=== PATIENT | male | born 1955 | race Caucasian/White ===

== ENCOUNTER → 2017-05-07 | Outpatient (REF) | payer MEDICARE, BC, MEDICAID ==
[~2017-05-07] MED LIST: ACET50TAOT PO; ASPI1TAB PO; ASPI81TA24 PO; ATOR40TA75 PO; AUGM875T28 PO; BACL10TA2 PO; ENAL2.5T PO; ENAL5TAB PO; FISH100049 PO; KEPP10002 PO; METO25TAB PO; NITR4TASL SL; PLAV1TAB2 PO; PRIL20CA9 PO; TOPR100T PO; VITMTA PO
[2017-05-07 22:01] LABS: BASO # 0.1 K/mm3 (0.0-0.2); BASO % 0.6 % (0.0-1.0); EOS # 0.5 K/mm3 (0.0-0.50); EOS % 3.8 % (0.0-3.0); LARGE UNSTAINED CELL # 0.1 K/mm3 (0.0-0.4); LYMPH # 1.6 K/mm3 (1.5-4.5); LYMPH % 13.7 % (24.0-44.0); MEAN CORPUSCULAR HEMOGLOBIN 32.8 pg (27.0-33.0); MEAN CORPUSCULAR HGB CONC 34.5 g/dl (32.0-36.5); MEAN CORPUSCULAR VOLUME 95.1 fl (80.0-96.0); MONO # 0.5 K/mm3 (0.0-0.8); MONO % 4.4 % (0.0-5.0); NEUTROPHILS # 9.2 K/mm3 (1.8-7.7); NEUTROPHILS % 76.5 % (36.0-66.0); PLATELET COUNT, AUTOMATED 175 k/mm3 (150-450); RED CELL DISTRIBUTION WIDTH 11.9 % (11.5-14.5)
== END ==
LOC: M LAB REF 20:59
PROVIDERS: ATTEND Physician Assistant Medical
DX: R31.9 Hematuria, unspecified (principal)

== ENCOUNTER → 2017-08-22 | Outpatient (CLI) | payer BC, MEDICARE ==
[~2017-08-22] MED LIST changes: +CONRAY-43 43% 50ML VIAL (Q9960) As Ordered ONE; +PROHANCE 279.3MG/ML 5ML VIAL (A9576) As Ordered ONE
--- NOTE | 2017-08-22 10:20 | REP ---
CT arthrogram left shoulder with intra-articular iodinated contrast injection: History: Muscle strain/tendon injury rotator cuff left shoulder. Comparison MRI study left shoulder is from May 22, 2014. Technique: The injection procedure is performed and dictated separately. Helical scanning is acquired. Axial 3 mm slices are reformatted. Coronal and sagittal multiplanar reformation images are generated and reviewed. CT arthrographic findings: There is subcortical cyst formation in the superolateral aspect of the humeral head. In addition, there is area of what appears to be older subacute impaction of the superolateral cortex of the humeral head. This is in the expected location of a Hill-Sachs impaction fracture deformity. It is not visible on the 2014 MRI study. Glenohumeral and acromioclavicular joints are normally aligned. No loose body is seen. No other fracture or bony destructive or erosive lesion. Superior labral cartilage is unremarkable on coronal images. No anterior or posterior cartilaginous labral tear is seen. No loose body is seen. The subscapularis tendon appears to be intact. The biceps tendon is seen within the bony bicipital groove. On oblique coronal reformation images, there is slight attenuation of the supraspinatus tendon. No retracted tear is seen. I suspect partial thickness tears along the undersurface of the supraspinatus tendon. Impression: Partial thickness distal supraspinatus tendon tear suspected synovial surface. No complete tear is appreciated. There is evidence of a subtle Hill-Sachs impaction lesion posterior, superior and lateral on the humeral head. The labral cartilage disruption is appreciated. Signed by Kennedy Gonzalez MD 08/22/2017 04:06 P
--- NOTE | 2017-08-22 16:30 | REP ---
Procedure: Left shoulder arthrogram The procedure was performed under the direct supervision of Dr. Gonzalez. History: Left shoulder pain The benefits and risks including but not limited to pain, infection, bleeding and anaphylaxis were explained to the patient and informed consent was obtained. Technique: The left glenohumeral joint space was localized using fluoroscopic guidance. The skin was prepped and draped in a sterile fashion. 1% lidocaine was used as a local anesthetic. Using fluoroscopic guidance a 22 gauge spinal needle was inserted and advanced into the joint. 11 ml of Conray 43 was injected into the joint. The needle was removed and the patient was taken to CAT scan for postprocedural imaging. The the patient tolerated the procedure well and there were no immediate complications. 4 seconds of fluoro time was utilized for this procedure. Reviewed by ANDREW London 08/22/2017 03:57 PSigned by Kennedy Gonzalez MD 08/22/2017 04:21 P
== END ==
LOC: M RADPRO 08:25
PROVIDERS: ATTEND Family Medicine
DX: S46.012D Strain of muscle(s) and tendon(s) of the rotator cuff of left shoulder, subsequent encounter (principal); M75.92 Shoulder lesion, unspecified, left shoulder; M24.112 Other articular cartilage disorders, left shoulder; X58.XXXD Exposure to other specified factors, subsequent encounter; Y93.9 Activity, unspecified; Y92.9 Unspecified place or not applicable; Y99.8 Other external cause status; Z88.5 Allergy status to narcotic agent; Z88.3 Allergy status to other anti-infective agents; Z88.8 Allergy status to other drugs, medicaments and biological substances; Z88.2 Allergy status to sulfonamides; Z79.82 Long term (current) use of aspirin; Z79.899 Other long term (current) drug therapy
CPT/HCPCS: 23350; 73201; 77002; A9576; Q9960

== ENCOUNTER 2017-10-22 08:36 | Day surgery (SDC) | payer BC ==
[2017-10-22] MEDS ORDERED: NEOSTIGMINE 10 MG/10 ML VIAL (J2710) (08:37)
[2017-10-22] MEDS ORDERED: dexameTHASONE 10 MG/1 ML VIAL PRES.FREE (J1100) (08:37)
[2017-10-22] MEDS ORDERED: ROPIvacaine 0.5% 30 ML INJECTION (J2795 PER 1MG) (08:37)
[2017-10-22] MEDS: LR 1,000 ML IV (09:26)
[2017-10-22] MEDS ORDERED: fentaNYL 100 MCG/2 ML INJECTION (J3010) As Ordered ×2 (10:25→11:08)
[2017-10-22] MEDS ORDERED: MIDAZOLAM INJ 2 MG/2 ML VIAL (J2250) As Ordered ×2 (10:25→11:08)
[2017-10-22] MEDS: LIDOCAINE 1% MDV 20ML VIAL As Ordered (11:11)
[2017-10-22] MEDS ORDERED: MIDAZOLAM INJ 2 MG/2 ML VIAL (J2250) IV (11:30)
[2017-10-22] MEDS ORDERED: fentaNYL 100 MCG/2 ML INJECTION (J3010) IV ×2 (11:30→14:30)
[2017-10-22] MEDS: EPINEPHrine 1MG/ML INJ 30ML MD-VIAL As Ordered (11:40)
[2017-10-22] MEDS ORDERED: ONDANSETRON 4MG/2ML VIAL (J2405) As Ordered (13:06)
[2017-10-22] MEDS ORDERED: LIDOCAINE 2% INJ 100 MG/5 ML SDV (FOR ANES.) As Ordered (13:06)
[2017-10-22] MEDS ORDERED: PROPOFOL 200 MG/20 ML VIAL As Ordered (13:06)
[2017-10-22] MEDS ORDERED: NEOSTIGMINE 10 MG/10 ML VIAL (J2710) As Ordered (13:06)
[2017-10-22] MEDS ORDERED: ROCURONIUM BROMIDE 50 MG/5 ML VIAL As Ordered (13:06)
[2017-10-22] MEDS ORDERED: ePHEDrine INJ 50 MG/ML VIAL As Ordered ×2 (13:07→13:39)
[2017-10-22] MEDS ORDERED: dexameTHASONE 4 MG/ML 1ML VIAL (J1100) As Ordered (13:07)
[2017-10-22] MEDS ORDERED: ONDANSETRON 4MG/2ML VIAL (J2405) IV (14:30)
[2017-10-22] MEDS ORDERED: LR 1,000 ML IV ×2 (14:30→15:00)
== END 2017-10-22 15:23 | disposition home or self-care (01) ==
LOC: M SDC 08:36
DX: M75.122 Complete rotator cuff tear or rupture of left shoulder, not specified as traumatic (principal); M75.22 Bicipital tendinitis, left shoulder; S43.492A Other sprain of left shoulder joint, initial encounter; X58.XXXA Exposure to other specified factors, initial encounter; Y93.89 Activity, other specified; Y92.89 Other specified places as the place of occurrence of the external cause; Y99.8 Other external cause status; I11.9 Hypertensive heart disease without heart failure; I25.10 Atherosclerotic heart disease of native coronary artery without angina pectoris; K21.9 Gastro-esophageal reflux disease without esophagitis; E78.5 Hyperlipidemia, unspecified; I25.2 Old myocardial infarction; J44.9 Chronic obstructive pulmonary disease, unspecified; K62.1 Rectal polyp; I07.1 Rheumatic tricuspid insufficiency; I34.0 Nonrheumatic mitral (valve) insufficiency; M12.9 Arthropathy, unspecified; M25.512 Pain in left shoulder; G35 Multiple sclerosis; G47.30 Sleep apnea, unspecified; J30.9 Allergic rhinitis, unspecified; F17.200 Nicotine dependence, unspecified, uncomplicated; Z88.5 Allergy status to narcotic agent; Z88.8 Allergy status to other drugs, medicaments and biological substances; Z91.048 Other nonmedicinal substance allergy status; Z79.899 Other long term (current) drug therapy; Z79.82 Long term (current) use of aspirin; Z79.52 Long term (current) use of systemic steroids; Z79.01 Long term (current) use of anticoagulants; Z95.1 Presence of aortocoronary bypass graft; Z95.5 Presence of coronary angioplasty implant and graft; Z86.73 Personal history of transient ischemic attack (TIA), and cerebral infarction without residual deficits; Z98.84 Bariatric surgery status; Z96.1 Presence of intraocular lens
CPT/HCPCS: 29827

== ENCOUNTER 2018-03-13 06:35 | Emergency (ER) | payer BC ==
[2018-03-13 07:28] LABS: BASO # 0.1 10^3/uL (0.0-0.2); BASO % 0.5 % (0.0-1.0); EOS # 0.2 10^3/uL (0.0-0.50); EOS % 2.3 % (0.0-3.0); HEMATOCRIT 45.9 % (42.0-52.0); HEMOGLOBIN 15.7 g/dl (13.5-17.5); IMMATURE GRANULOCYTE % 0.5 % (0-3.0); LYMPH # 1.1 10^3/uL (1.5-4.5); LYMPH % 11.5 % (24.0-44.0); MEAN CORPUSCULAR HEMOGLOBIN 31.2 pg (27.0-33.0); MEAN CORPUSCULAR HGB CONC 34.2 g/dl (32.0-36.5); MEAN CORPUSCULAR VOLUME 91.3 fl (80.0-96.0); MONO # 0.6 10^3/uL (0.0-0.8); MONO % 6.3 % (0.0-5.0); NEUTROPHILS # 7.6 10^3/uL (1.8-7.7); NEUTROPHILS % 78.9 % (36.0-66.0); PLATELET COUNT, AUTOMATED 176 10^3/uL (150-450); RED BLOOD COUNT 5.03 10^6/uL (4.30-6.10); RED CELL DISTRIBUTION WIDTH 11.9 % (11.5-14.5); WHITE BLOOD COUNT 9.7 10^3/uL (4.0-10.0)
[2018-03-13] MEDS: ONDANSETRON 4MG/2ML VIAL (J2405) IV (07:31)
[2018-03-13] MEDS: NS 1,000 ML IV (07:32)
[2018-03-13 07:39] LABS: ALBUMIN 3.8 GM/DL (3.2-5.2); ALKALINE PHOSPHATASE 140 U/L (45-117); ALT/SGPT 31 U/L (12-78); ANION GAP 9 MEQ/L (8-16); AST/SGOT 23 U/L (7-37); BILIRUBIN,DIRECT 0.2 MG/DL (0.0-0.2); BILIRUBIN,TOTAL 0.6 MG/DL (0.2-1.0); BLOOD UREA NITROGEN 18 MG/DL (7-18); CALCIUM LEVEL 8.4 MG/DL (8.8-10.2); CARBON DIOXIDE LEVEL 25 MEQ/L (21-32); CHLORIDE LEVEL 106 MEQ/L (98-107); CREATININE FOR GFR 1.18 MG/DL (0.70-1.30); GLOMERULAR FILTRATION RATE > 60.0 (>49); GLUCOSE, FASTING 142 MG/DL (70-100); LIPASE 94 U/L (73-393); POTASSIUM SERUM 4.3 MEQ/L (3.5-5.1); SODIUM LEVEL 140 MEQ/L (136-145); TOTAL PROTEIN 7.6 GM/DL (6.4-8.2)
== END 2018-03-13 09:35 | disposition home or self-care (01) ==
LOC: M ED 06:35
DX: R11.10 Vomiting, unspecified (principal); R19.7 Diarrhea, unspecified; Z79.82 Long term (current) use of aspirin; Z79.899 Other long term (current) drug therapy; Z88.5 Allergy status to narcotic agent; Z88.8 Allergy status to other drugs, medicaments and biological substances; Z88.1 Allergy status to other antibiotic agents; Z91.89 Other specified personal risk factors, not elsewhere classified
CPT/HCPCS: J2405

== ENCOUNTER → 2018-08-26 | Outpatient (CLI) | payer BC, MEDICARE | LOC: M RAD 13:09 | DX: R47.81 Slurred speech (principal) | CPT/HCPCS: 70551 ==

== ENCOUNTER → 2020-02-01 | Outpatient (REF) | payer MEDICARE, OTHER ==
[~2020-02-01] MED LIST changes: +ACET500T15 PO; -ACET50TAOT PO; -ASPI1TAB PO; +ASPI81TA26 PO; -CONRAY-43 43% 50ML VIAL (Q9960) As Ordered ONE; +LASI20TA3 PO; +METO1TAB63 PO; -METO25TAB PO; -PROHANCE 279.3MG/ML 5ML VIAL (A9576) As Ordered ONE; +ZOFR4TAB14 PO
[2020-02-01 10:37] LABS: BASO # 0.1 10^3/uL (0.0-0.2); BASO % 0.7 % (0.0-1.0); EOS # 0.8 10^3/uL (0.0-0.5); EOS % 5.8 % (0.0-3.0); HEMATOCRIT 45.8 % (42.0-52.0); HEMOGLOBIN 14.9 g/dl (13.5-17.5); LYMPH # 2.8 10^3/uL (1.5-5.0); LYMPH % 19.6 % (24.0-44.0); MEAN CORPUSCULAR HEMOGLOBIN 30.9 pg (27.0-33.0); MEAN CORPUSCULAR HGB CONC 32.5 g/dl (32.0-36.5); NEUTROPHILS # 9.4 10^3/uL (1.5-8.5); NEUTROPHILS % 66.6 % (36.0-66.0); PLATELET COUNT, AUTOMATED 213 10^3/uL (150-450); RED BLOOD COUNT 4.82 10^6/uL (4.30-6.10); WHITE BLOOD COUNT 14.1 10^3/uL (4.0-10.0)
[2020-02-01 10:50] LABS: ALBUMIN 3.8 GM/DL (3.2-5.2); ALT/SGPT 35 U/L (12-78); BILIRUBIN,TOTAL 0.4 MG/DL (0.2-1.0); BLOOD UREA NITROGEN 20 MG/DL (7-18); CALCIUM LEVEL 8.9 MG/DL (8.8-10.2); CARBON DIOXIDE LEVEL 30 MEQ/L (21-32); CHLORIDE LEVEL 106 MEQ/L (98-107); CREATININE FOR GFR 1.09 MG/DL (0.70-1.30); GLOMERULAR FILTRATION RATE > 60.0 (>49); GLUCOSE, FASTING 125 MG/DL (70-100); SODIUM LEVEL 139 MEQ/L (136-145); TOTAL PROTEIN 7.3 GM/DL (6.4-8.2)
== END ==
LOC: M SFHCPLAZ 08:00
PROVIDERS: ATTEND Family Medicine
DX: R61 Generalized hyperhidrosis (principal)

== ENCOUNTER → 2020-02-08 | Outpatient (REF) | payer MEDICARE ==
[2020-02-08 11:22] LABS: APPEARANCE, URINE CLEAR (CLEAR); BACTERIA, URINE AUTO 1+ (NEGATIVE); BILIRUBIN, URINE AUTO NEGATIVE (NEGATIVE); BLOOD, URINE BLOOD 1+ (NEGATIVE); COLOR, URINE YELLOW (YELLOW); GLUCOSE, URINE (UA) AUTO NEGATIVE (NEGATIVE); KETONE, URINE AUTO NEGATIVE (NEGATIVE); LEUKOCYTE ESTERASE, URINE AUTO TRACE (NEGATIVE); MUCUS, URINE SMALL (NEGATIVE); NITRITE, URINE AUTO NEGATIVE (NEGATIVE); PROTEIN, URINE AUTO NEGATIVE (NEGATIVE); RBC, URINE AUTO 3 /HPF (0-3); SPECIFIC GRAVITY URINE AUTO 1.015 (1.002-1.035); SQUAMOUS EPITHELIAL CELL UR AU 0 /HPF (0-6); UROBILINOGEN, URINE AUTO 0.2 mg/dL (0.0-2.0); WBC, URINE AUTO 1 /HPF (0-3)
[2020-02-08 11:30] LABS: BASO # 0.1 10^3/uL (0.0-0.2); BASO % 0.7 % (0.0-1.0); EOS # 0.9 10^3/uL (0.0-0.5); EOS % 7.3 % (0.0-3.0); HEMATOCRIT 45.9 % (42.0-52.0); HEMOGLOBIN 14.8 g/dl (13.5-17.5); LYMPH # 2.8 10^3/uL (1.5-5.0); LYMPH % 22.4 % (24.0-44.0); MEAN CORPUSCULAR HEMOGLOBIN 30.6 pg (27.0-33.0); MEAN CORPUSCULAR HGB CONC 32.2 g/dl (32.0-36.5); MONO # 0.8 10^3/uL (0.0-0.8); MONO % 6.3 % (0.0-5.0); NEUTROPHILS # 7.9 10^3/uL (1.5-8.5); NEUTROPHILS % 62.9 % (36.0-66.0); PLATELET COUNT, AUTOMATED 225 10^3/uL (150-450); RED BLOOD COUNT 4.83 10^6/uL (4.30-6.10); WHITE BLOOD COUNT 12.6 10^3/uL (4.0-10.0)
[2020-02-08 11:54] LABS: C REACTIVE PROTEIN QUANTITATIV 0.81 MG/DL (0.00-0.30)
[2020-02-08 12:46] LABS: HIV 1&2 SCREEN CENTAUR NEGATIVE (NEGATIVE)
== END ==
LOC: M PLALAB 10:05
PROVIDERS: ATTEND Family Medicine
DX: D72.829 Elevated white blood cell count, unspecified (principal); R73.09 Other abnormal glucose; R91.8 Other nonspecific abnormal finding of lung field; R61 Generalized hyperhidrosis; Z92.89 Personal history of other medical treatment; Z79.899 Other long term (current) drug therapy

== ENCOUNTER → 2020-02-08 | Outpatient (CLI) | payer MEDICARE ==
--- NOTE | 2020-02-08 13:17 | REPPI ---
CHEST, TWO VIEWS: Two views of the chest are performed. COMPARISON: 12/27/2015 There is diffuse interstitial fibrosis with mild biapical pleural thickening. No infiltrate is seen. Heart is normal in size, and the mediastinal silhouette is unremarkable with mild calcification of the thoracic aorta. There are degenerative changes of the spine. IMPRESSION: Bilateral interstitial fibrosis. No acute pulmonary disease. Electronically Signed by Jonathan Munoz MD 02/08/2020 01:46 P
== END ==
LOC: M PLALAB 10:07
PROVIDERS: ATTEND Family Medicine
DX: R91.8 Other nonspecific abnormal finding of lung field (principal); R61 Generalized hyperhidrosis; Z92.89 Personal history of other medical treatment

== ENCOUNTER → 2020-02-23 | Outpatient (REF) | payer MEDICARE ==
[2020-02-23 11:52] LABS: BASO # 0.1 10^3/uL (0.0-0.2); BASO % 0.8 % (0.0-1.0); EOS % 7.4 % (0.0-3.0); HEMATOCRIT 44.5 % (42.0-52.0); HEMOGLOBIN 14.8 g/dl (13.5-17.5); LYMPH # 2.9 10^3/uL (1.5-5.0); LYMPH % 22.2 % (24.0-44.0); MEAN CORPUSCULAR HEMOGLOBIN 31.4 pg (27.0-33.0); MEAN CORPUSCULAR HGB CONC 33.3 g/dl (32.0-36.5); MEAN CORPUSCULAR VOLUME 94.3 fl (80.0-96.0); MONO # 0.8 10^3/uL (0.0-0.8); MONO % 6.5 % (0.0-5.0); NEUTROPHILS # 8.1 10^3/uL (1.5-8.5); NEUTROPHILS % 62.7 % (36.0-66.0); PLATELET COUNT, AUTOMATED 213 10^3/uL (150-450); RED BLOOD COUNT 4.72 10^6/uL (4.30-6.10)
[2020-02-23 11:59] LABS: APPEARANCE, URINE HAZY (CLEAR); BACTERIA, URINE AUTO 1+ (NEGATIVE); BILIRUBIN, URINE AUTO NEGATIVE (NEGATIVE); BLOOD, URINE BLOOD 1+ (NEGATIVE); COLOR, URINE YELLOW (YELLOW); GLUCOSE, URINE (UA) AUTO NEGATIVE (NEGATIVE); KETONE, URINE AUTO NEGATIVE (NEGATIVE); LEUKOCYTE ESTERASE, URINE AUTO TRACE (NEGATIVE); NITRITE, URINE AUTO NEGATIVE (NEGATIVE); PROTEIN, URINE AUTO NEGATIVE (NEGATIVE); RBC, URINE AUTO 4 /HPF (0-3); SPECIFIC GRAVITY URINE AUTO 1.016 (1.002-1.035); SQUAMOUS EPITHELIAL CELL UR AU 0 /HPF (0-6); UROBILINOGEN, URINE AUTO 0.2 mg/dL (0.0-2.0); WBC, URINE AUTO 8 /HPF (0-3)
== END ==
LOC: M PLALAB 09:58
PROVIDERS: ATTEND Family Medicine
DX: D72.1 Eosinophilia (principal); R61 Generalized hyperhidrosis
CPT/HCPCS: 36415; 81001; 82607; 85025; G0103

== ENCOUNTER → 2020-08-10 | Outpatient (CLI) | payer SELFPAY ==
[~2020-08-10] MED LIST changes: +ENAL1TAB46 PO; -ENAL2.5T PO; +ENAL5TA PO; -ENAL5TAB PO
--- NOTE | 2020-08-10 14:47 | REP ---
INDICATION: VISIBLE NEW PULMONARY NODULE COMPARISON: 12/27/2015 TECHNIQUE: Axial noncontrast images from the thoracic inlet to the upper abdomen with coronal and sagittal reformations. This CT examination was performed using the following dose reduction techniques: Automated exposure control, adjustment of mA and/or kv according to the patient's size, and use of iterative reconstruction technique. FINDINGS: Chronic advanced COPD/emphysematous changes with scattered scarring and mild bronchiectasis again noted. There is a small 5 mm nodule anterior to the aortic arch in the medial left upper lobe (image 29). No further consolidation, suspicious nodule or mass lesion appreciated. No pleural effusion. No pneumothorax. Stable mediastinal lymph nodes unchanged compared to 2016. Extensive atherosclerotic changes to the thoracic aorta and coronary arteries again noted without aortic aneurysm or cardiomegaly. No pericardial effusion. Limited upper abdomen demonstrates hyperplastic changes to the left adrenal gland. Skeletal structures are intact and without acute osseous abnormality. IMPRESSION: 1. 5 mm noncalcified nodule in the medial left upper lobe anterior to the aortic arch. Consider follow-up examination at 6 months. 2. Advanced chronic stable COPD/emphysematous changes. <Electronically signed by Evan Chapman > 08/10/20 [id number]
== END ==
LOC: M RAD 12:43
PROVIDERS: ATTEND Family Medicine
DX: R91.1 Solitary pulmonary nodule (principal); J44.9 Chronic obstructive pulmonary disease, unspecified

== ENCOUNTER → 2020-10-22 | Outpatient (CLI) | payer SELFPAY | LOC: M LABSMTC 08:05 | PROVIDERS: ATTEND Pediatrics | DX: Z20.822 Contact with and (suspected) exposure to COVID-19 (principal) ==

== ENCOUNTER → 2021-04-11 | Outpatient (CLI) | payer MEDICARE ==
--- NOTE | 2021-04-11 14:46 | REP ---
INDICATION: PULMONARY NODULE. COMPARISON: 08/10/2020 TECHNIQUE: Noncontrast CT with coronal and sagittal reconstructions provided. FINDINGS: The lung lamas are hyperinflated. There is extensive bullous emphysematous changes greatest in the mid and upper lung zones some fibrotic changes as well. There is cylindrical bronchiectatic change. On image 33 there is a anteromedial left upper lobe 8.6 mm solid nodule that abuts and tents the adjacent pleura of the left upper lobe. This is unchanged by my direct measurement of the previous study where it is about 9 mm. Some apical pleuroparenchymal scarring noted. I do not see pleural effusion, pleural based mass, calcified pleural plaque or acute infiltrates. Heart size not grossly enlarged. Coronary stent visible. The aorta has some atherosclerotic calcifications at the arch without aneurysm. There is a right paratracheal node 11 mm in short axis and a AP window node up to 12 mm in short axis. Other near cm and sub cm nodes are seen in the mediastinum. No axillary or supraclavicular masses. Thoracic spondylosis the again seen without acute compression deformity or destructive lesion. The sternum, manubrium, medial clavicles, visualized portions of scapulae, humeral heads as well as the ribs were all unremarkable. The upper abdomen shows posterior aspect right hepatic lobe with a bilobed or 2 adjacent cysts, similar to the previous study. No other hepatic finding. Spleen, adrenal glands, pancreas are unchanged. Adrenal glands do show some thickening of limbs particularly on the left suggesting adrenal hyperplasia. Gallbladder is contracted with retained food or recent meal in the stomach. Portion of bowel loops in the upper abdomen and the upper poles of kidneys unremarkable. There is a loop recorder in the left anterior chest wall. IMPRESSION: 1. Stable CT chest with a 8.6 mm noncalcified nodule in the medial aspect left upper lobe abutting the pleura adjacent to the aortic arch. Measured 9 mm on the previous study by my direct comparison. Stable lymphadenopathy in the mediastinum. No other new or acute finding. 2. Advanced COPD with bullous emphysematous changes, fibrotic changes, cylindrical bronchiectasis and some coronary stents again noted. Pulmonary arteries are prominent centrally consistent with pulmonary artery hypertension. 3. Small right lobe hepatic cyst <Electronically signed by Homero Vora > 04/11/21 [id number]
== END ==
LOC: M PLAIMG 12:43
PROVIDERS: ATTEND Family Medicine
DX: R91.1 Solitary pulmonary nodule (principal); J43.9 Emphysema, unspecified; Z95.5 Presence of coronary angioplasty implant and graft; I70.0 Atherosclerosis of aorta; M47.814 Spondylosis without myelopathy or radiculopathy, thoracic region; K76.89 Other specified diseases of liver

== ENCOUNTER → 2021-10-25 | Outpatient (REF) | payer MEDICARE ==
[2021-10-25 14:04] LABS: APPEARANCE, URINE CLEAR (CLEAR); BACTERIA, URINE AUTO NEGATIVE (NEGATIVE); BILIRUBIN, URINE AUTO NEGATIVE (NEGATIVE); BLOOD, URINE BLOOD 1+ (NEGATIVE); COLOR, URINE YELLOW (YELLOW); GLUCOSE, URINE (UA) AUTO NEGATIVE (NEGATIVE); KETONE, URINE AUTO NEGATIVE (NEGATIVE); LEUKOCYTE ESTERASE, URINE AUTO NEGATIVE (NEGATIVE); NITRITE, URINE AUTO NEGATIVE (NEGATIVE); PROTEIN, URINE AUTO NEGATIVE (NEGATIVE); RBC, URINE AUTO 1 /HPF (0-3); SQUAMOUS EPITHELIAL CELL UR AU 0 /HPF (0-6); UROBILINOGEN, URINE AUTO 0.2 mg/dL (0.0-2.0); WBC, URINE AUTO 2 /HPF (0-3)
== END ==
LOC: M SMT 13:06
PROVIDERS: ATTEND Nurse Practitioner Women's Health
DX: R35.1 Nocturia (principal)
CPT/HCPCS: 51798; 81001; 87088; 87186; G0463

== ENCOUNTER → 2021-11-02 | Outpatient (CLI) | payer MEDICARE | LOC: M LAB 15:30 | PROVIDERS: ATTEND Nurse Practitioner Women's Health | DX: Z12.5 Encounter for screening for malignant neoplasm of prostate (principal) | CPT/HCPCS: 36415; G0103 ==

== ENCOUNTER → 2021-11-16 | Outpatient (CLI) | payer MEDICARE | LOC: M SOG 08:56 | PROVIDERS: ATTEND Orthopaedic Surgery Hand Surgery | DX: M25.511 Pain in right shoulder (principal) ==

== ENCOUNTER → 2022-09-12 | Outpatient (CLI) | payer MEDICARE ==
[~2022-09-12] MED LIST changes: +CLOP75TA99 PO; +ISOVUE-300 61% 50ML VIAL As Ordered ONE; +LIDOCAINE 1% MDV 20ML VIAL As Ordered ONE; -PLAV1TAB2 PO; +PROHANCE 279.3MG/ML 5ML VIAL As Ordered ONE
== END ==
LOC: M RAD 14:46
PROVIDERS: ATTEND Orthopaedic Surgery Hand Surgery
DX: S46.011A Strain of muscle(s) and tendon(s) of the rotator cuff of right shoulder, initial encounter (principal); X58.XXXA Exposure to other specified factors, initial encounter; Y92.9 Unspecified place or not applicable
CPT/HCPCS: 23350; 73201; 77002; Q9967

== ENCOUNTER → 2022-10-17 | Outpatient (CLI) | payer OTHER ==
[~2022-10-17] MED LIST changes: +CEPH500C PO; +CLOP75TA2 PO; +ENAL1TAB48 PO; -ENAL5TA PO; -ISOVUE-300 61% 50ML VIAL As Ordered ONE; -LIDOCAINE 1% MDV 20ML VIAL As Ordered ONE; +METO1TAB33 PO; +OMEP20TA2 PO; +ONDA4TAB6 PO; +OXYC1TAB23 PO; +PRIL20TA2 PO; -PROHANCE 279.3MG/ML 5ML VIAL As Ordered ONE
== END ==
LOC: M PLALAB 07:49
PROVIDERS: ATTEND Internal Medicine Hematology
DX: Z01.818 Encounter for other preprocedural examination (principal); Z12.5 Encounter for screening for malignant neoplasm of prostate

== ENCOUNTER → 2022-11-05 | Outpatient (CLI) | payer MEDICARE, OTHER ==
[~2022-11-05] MED LIST changes: -CEPH500C PO; -OXYC1TAB23 PO; -PRIL20TA2 PO
== END ==
LOC: M LABSMTC 09:08
PROVIDERS: ATTEND Anesthesiology
DX: Z01.812 Encounter for preprocedural laboratory examination (principal); Z11.52 Encounter for screening for COVID-19

== ENCOUNTER 2022-11-08 10:13 | Day surgery (SDC) | payer MEDICARE, OTHER ==
[~2022-11-08] VITALS: Ht 175.3 cm; Wt 95.3 kg
[~2022-11-08 10:13] MED LIST changes: +ceFAZolin SOD 2 GM in IV 1 EA IV ONE
[2022-11-08] MEDS ORDERED: LR 1,000 ML IV SCH ×2 (10:35→15:50)
[2022-11-08] MEDS ORDERED: LIDOCAINE 2% 100MG/5ML SDV (FOR ANES.) As Ordered ONE (10:36)
[2022-11-08] MEDS ORDERED: propofoL 200 MG/20 ML VIAL As Ordered ONE (10:36)
[2022-11-08] MEDS ORDERED: ROCURONIUM BROMIDE 50MG/5ML VIAL As Ordered ONE ×2 (10:36→13:55)
[2022-11-08] MEDS ORDERED: PRIL20TA2 PO (11:39)
[2022-11-08] MEDS ORDERED: EPINEPHrine INJ 1 MG/ML 1ML AMP PN ONE (11:40)
[2022-11-08] MEDS ORDERED: HOME MED LIST COMPLETE! XX SCH (11:40)
[2022-11-08] MEDS ORDERED: fentaNYL 100 MCG/2 ML INJECTION IV PRN ×2 (11:40→15:50)
[2022-11-08] MEDS ORDERED: LIDOCAINE 1% SDV 5ML VIAL PN ONE (11:40)
[2022-11-08] MEDS ORDERED: ROPIvacaine 0.5% 30ML VIAL PN ONE (11:40)
[2022-11-08] MEDS: MIDAZOLAM INJ 2MG/2ML VIAL IV PRN ×2 (12:20→12:22)
[2022-11-08] MEDS ORDERED: LIDOCAINE W/EPINEPHRINE 1% 20ML VIAL As Ordered ONE (12:56)
[2022-11-08] MEDS ORDERED: SODIUM BICARBONATE 8.4% INJ 50MEQ 50ML VIAL As Ordered ONE (12:57)
[2022-11-08] MEDS ORDERED: TRANEXAMIC ACID 100 MG/ML 10ML VIAL As Ordered ONE (13:04)
[2022-11-08] MEDS ORDERED: VANCOMYCIN 500MG/10ML VIAL As Ordered ONE (13:04)
[2022-11-08] MEDS ORDERED: ETOMIDATE INJ 20MG/10ML VIAL As Ordered ONE (13:19)
[2022-11-08] MEDS ORDERED: ACETAMINOPHEN 1000MG 100ML IV BAG As Ordered ONE (13:55)
[2022-11-08] MEDS ORDERED: ONDANSETRON 4MG 2ML VIAL As Ordered ONE (13:55)
[2022-11-08] MEDS ORDERED: PHENYLephrine 500MCG 5ML (100MCG/ML) SYRINGE As Ordered ONE (14:56)
[2022-11-08] MEDS ORDERED: ePHEDrine SULFATE 25 MG/5 ML(5MG/ML) SYRINGE As Ordered ONE (15:27)
[2022-11-08] MEDS ORDERED: fentaNYL 100 MCG/2 ML INJECTION As Ordered ONE (15:39)
[2022-11-08] MEDS ORDERED: ACETAMINOPHEN TAB 650MG DOSE (2X325MG) PO PRN (15:45)
[2022-11-08] MEDS ORDERED: ONDANSETRON 4MG 2ML VIAL IV PRN ×2 (15:45→15:50)
[2022-11-08] MEDS ORDERED: MORPHINE 4 MG/ML 1ML VIAL IV PRN (15:45)
[2022-11-08] MEDS ORDERED: HYDROMORPHONE HCL 0.5 MG/ 0.5 ML SYRINGE IV PRN (15:50)
[2022-11-08] MEDS ORDERED: oxyCODONE 5MG TAB PO PRN (15:50)
[2022-11-08] MEDS ORDERED: CEPH500C PO (16:44)
[2022-11-08] MEDS ORDERED: OXYC1TAB23 PO (16:44)
[2022-11-08 17:15] VITALS: BP 129/61
[2022-11-08] MEDS ORDERED: ceFAZolin SOD 1 GM in D5W MINI-BAG PLUS 50 ML IV SCH (21:00)
[2022-11-09] MEDS ORDERED: ENOXAPARIN 40MG/0.4ML SYRINGE (J1650 PER 10MG) SC SCH (21:00)
== END 2022-11-08 17:30 | disposition home or self-care (01) ==
LOC: M SDC 10:13
PROVIDERS: ATTEND Orthopaedic Surgery Hand Surgery
DX: M25.811 Other specified joint disorders, right shoulder (principal); I11.9 Hypertensive heart disease without heart failure; I50.30 Unspecified diastolic (congestive) heart failure; J44.9 Chronic obstructive pulmonary disease, unspecified; K21.9 Gastro-esophageal reflux disease without esophagitis; G35 Multiple sclerosis; I25.10 Atherosclerotic heart disease of native coronary artery without angina pectoris; Z95.1 Presence of aortocoronary bypass graft; Z98.61 Coronary angioplasty status; R91.1 Solitary pulmonary nodule; F17.210 Nicotine dependence, cigarettes, uncomplicated; Z79.82 Long term (current) use of aspirin; Z79.01 Long term (current) use of anticoagulants; Z79.899 Other long term (current) drug therapy; Z79.51 Long term (current) use of inhaled steroids; Z88.5 Allergy status to narcotic agent; Z88.1 Allergy status to other antibiotic agents; Z86.73 Personal history of transient ischemic attack (TIA), and cerebral infarction without residual deficits; G47.33 Obstructive sleep apnea (adult) (pediatric); R73.02 Impaired glucose tolerance (oral)
CPT/HCPCS: 23472; 73020; C1713; C1776; J0690; J1100; J2250; J2370; J2405; J3010

== ENCOUNTER → 2022-11-20 | Outpatient (CLI) | payer OTHER ==
[~2022-11-20] MED LIST changes: +CEPH500C PO; +OXYC1TAB23 PO; +PRIL20TA2 PO; -ceFAZolin SOD 2 GM in IV 1 EA IV ONE
== END ==
LOC: M SOG 09:41
PROVIDERS: ATTEND Orthopaedic Surgery Hand Surgery
DX: Z47.1 Aftercare following joint replacement surgery (principal); Z96.611 Presence of right artificial shoulder joint

== ENCOUNTER → 2022-12-18 | Outpatient (CLI) | payer OTHER | LOC: M SOG 09:34 | PROVIDERS: ATTEND Physician Assistant | DX: M12.811 Other specific arthropathies, not elsewhere classified, right shoulder (principal) ==

== ENCOUNTER → 2023-01-21 | Outpatient (CLI) | payer OTHER | LOC: M SOG 09:56 | PROVIDERS: ATTEND Physician Assistant | DX: M25.811 Other specified joint disorders, right shoulder (principal); M25.551 Pain in right hip; Z96.611 Presence of right artificial shoulder joint; M19.011 Primary osteoarthritis, right shoulder ==

== ENCOUNTER → 2023-02-01 | Outpatient (CLI) | payer OTHER | LOC: M SOG 15:18 | PROVIDERS: ATTEND Physician Assistant | DX: M25.511 Pain in right shoulder (principal); M12.811 Other specific arthropathies, not elsewhere classified, right shoulder; Z96.611 Presence of right artificial shoulder joint ==

== ENCOUNTER → 2024-02-26 | Outpatient (CLI) | payer OTHER ==
[~2024-02-26] MED LIST changes: +ONDA-282 PO; -ONDA4TAB6 PO
[2024-02-26 13:15] LABS: BASO # 0.1 10^3/uL (0.0-0.2); BASO % 0.6 % (0.0-1.0); EOS # 0.6 10^3/uL (0.0-0.5); EOS % 6.7 % (0.0-3.0); HEMATOCRIT 44.6 % (42.0-52.0); HEMOGLOBIN 14.5 g/dl (13.5-17.5); LYMPH # 2.6 10^3/uL (1.5-5.0); LYMPH % 31.1 % (24.0-44.0); MEAN CORPUSCULAR HEMOGLOBIN 30.9 pg (27.0-33.0); MEAN CORPUSCULAR HGB CONC 32.5 g/dl (32.0-36.5); MEAN CORPUSCULAR VOLUME 94.9 fl (80.0-96.0); MONO # 0.5 10^3/uL (0.0-0.8); MONO % 6.3 % (2.0-8.0); NEUTROPHILS # 4.6 10^3/uL (1.5-8.5); NEUTROPHILS % 54.9 % (36.0-66.0); PLATELET COUNT, AUTOMATED 199 10^3/uL (150-450); WHITE BLOOD COUNT 8.4 10^3/uL (4.0-10.0)
[2024-02-26 13:17] LABS: PSA SCREENING 0.41 NG/ML (< 4.00)
[2024-02-26 13:21] LABS: ALBUMIN 3.6 G/DL (3.2-5.2); ALKALINE PHOSPHATASE 151 U/L (46-116); ALT/SGPT 36 U/L (7.0-40); AST/SGOT 21 U/L (<34); BILIRUBIN,TOTAL 0.5 MG/DL (0.3-1.2); BLOOD UREA NITROGEN 20 MG/DL (9-23); CALCIUM LEVEL 8.8 MG/DL (8.3-10.6); CARBON DIOXIDE LEVEL 27 MMOL/L (20-31); CHLORIDE LEVEL 106 MMOL/L (98-107); CHOLESTEROL LEVEL 162 MG/DL (<200); CHOLESTEROL RISK RATIO 5.78 (<5); CREATININE FOR GFR 1.05 MG/DL (0.70-1.30); GLOMERULAR FILTRATION RATE > 60.0 (>49); GLUCOSE, FASTING 146 MG/DL (74-106); LDL CHOLESTEROL 85.6 MG/DL (<100); POTASSIUM SERUM 4.3 MMOL/L (3.5-5.1); SODIUM LEVEL 138 MMOL/L (136-145); THYROID STIMULATING HORMONE 3.254 uIU/ML (0.55-4.78); TOTAL PROTEIN 6.9 G/DL (5.7-8.2); TRIGLYCERIDES LEVEL 242 MG/DL (<150)
[2024-02-26 13:23] LABS: TOTAL 25(OH) VITAMIN D 26.9 NG/ML (20.0-100.0)
[2024-02-26 13:29] LABS: HEMOGLOBIN A1c 6.1 % (4.0-6.0)
[2024-02-26 13:46] LABS: MAU/CREAT RATIO 12.1 MCG/MG (0.0-30.0)
[2024-02-27 21:07] LABS: IgG P18 AB Absent (.); IgG P23 AB Absent (.); IgG P28 AB Absent (.); IgG P30 AB Absent (.); IgG P39 AB Absent (.); IgG P41 AB Present (.); IgG P45 AB Absent (.); IgG P58 AB Present (.); IgG P66 AB Absent (.); IgG P93 AB Absent (.); IgM P23 AB Absent (.); IgM P39 AB Absent (.); IgM P41 AB Absent (.); LYME IgG WB INTERPRETATION Negative (.); LYME IgM WB INTERPRETATION Negative (.)
== END ==
LOC: M PLALAB 10:30
PROVIDERS: ATTEND Internal Medicine Hematology
DX: D72.829 Elevated white blood cell count, unspecified (principal); R73.09 Other abnormal glucose; W57.XXXA Bitten or stung by nonvenomous insect and other nonvenomous arthropods, initial encounter; Z12.5 Encounter for screening for malignant neoplasm of prostate; Z79.899 Other long term (current) drug therapy

== ENCOUNTER → 2024-10-07 | Outpatient (CLI) | payer MEDICARE, OTHER ==
[~2024-10-07] MED LIST changes: +OMEP-611 PO; -OMEP20TA2 PO
[2024-10-07 11:09] LABS: ALBUMIN 3.6 G/DL (3.2-5.2); ALKALINE PHOSPHATASE 150 U/L (40-129); ALT/SGPT 29 U/L (7.0-40); AST/SGOT 20 U/L (<34); BILIRUBIN,TOTAL 0.3 MG/DL (0.3-1.2); BLOOD UREA NITROGEN 21 MG/DL (9-23); CALCIUM LEVEL 9.6 MG/DL (8.3-10.6); CARBON DIOXIDE LEVEL 30 MMOL/L (20-31); CHLORIDE LEVEL 105 MMOL/L (98-107); CHOLESTEROL LEVEL 191 MG/DL (<200); CHOLESTEROL RISK RATIO 6.43 (<5); CREATININE FOR GFR 1.02 MG/DL (0.70-1.30); GLOMERULAR FILTRATION RATE > 60.0 (>49); GLUCOSE, FASTING 98 MG/DL (74-106); HDL CHOLESTEROL 29.7 MG/DL (>40); LDL CHOLESTEROL 83.3 MG/DL (<100); NON-HDL-C 161.3 MG/DL; POTASSIUM SERUM 4.9 MMOL/L (3.5-5.1); SODIUM LEVEL 140 MMOL/L (136-145); TOTAL PROTEIN 7.4 G/DL (5.7-8.2); TRIGLYCERIDES LEVEL 390 MG/DL (<150)
[2024-10-07 11:31] LABS: HEMOGLOBIN A1c 6.1 % (4.0-6.0)
[2024-10-07 11:36] LABS: TOTAL 25(OH) VITAMIN D 31.3 NG/ML (20.0-100.0)
== END ==
LOC: M PLALAB 08:34
PROVIDERS: ATTEND Internal Medicine Cardiovascular Disease
DX: E78.5 Hyperlipidemia, unspecified (principal); R73.09 Other abnormal glucose; I25.10 Atherosclerotic heart disease of native coronary artery without angina pectoris; E55.9 Vitamin D deficiency, unspecified

== ENCOUNTER → 2024-10-22 | Outpatient (CLI) | payer MEDICARE | LOC: M PLAIMG 15:59 | PROVIDERS: ATTEND Student in an Organized Health Care Education/Training Program | DX: R06.02 Shortness of breath (principal) ==

== ENCOUNTER → 2025-04-15 | Outpatient (CLI) | payer MEDICARE | LOC: M RAD 06:49 | PROVIDERS: ATTEND Student in an Organized Health Care Education/Training Program | DX: R29.818 Other symptoms and signs involving the nervous system (principal) ==

== ENCOUNTER → 2025-06-17 | Outpatient (CLI) | payer MEDICARE ==
[2025-06-17 14:16] LABS: BASO # 0.1 10^3/uL (0.0-0.2); BASO % 0.7 % (0.0-1.0); EOS # 0.4 10^3/uL (0.0-0.5); EOS % 3.2 % (0.0-3.0); LYMPH # 3.0 10^3/uL (1.5-5.0); LYMPH % 26.6 % (24.0-44.0); MONO # 1.0 10^3/uL (0.0-0.8); MONO % 8.6 % (2.0-8.0); NEUTROPHILS # 6.8 10^3/uL (1.5-8.5); NEUTROPHILS % 60.5 % (36.0-66.0); PLATELET COUNT, AUTOMATED 191 10^3/uL (150-450)
== END ==
LOC: M PLALAB 10:17
DX: M31.6 Other giant cell arteritis (principal)